=== PATIENT | male | born 1970 | race American Indian/Alaskan Native ===

== ENCOUNTER 2020-04-16 00:34 | Observation (INO) | payer OTHER ==
[2020-04-16] MEDS ORDERED: ASPIRIN 325 MG TAB PO ONE ×2 (01:34→05:02)
--- NOTE | 2020-04-16 02:13 | XRay Report ---
CHEST 1 VIEW 04/16/2020 1:04 AM INDICATION / CLINICAL INFORMATION: Chest Pain. COMPARISON: None available. FINDINGS: SUPPORT DEVICES: None. HEART / MEDIASTINUM: No significant abnormality. LUNGS / PLEURA: No significant pulmonary or pleural abnormality. No pneumothorax. ADDITIONAL FINDINGS: No significant additional findings. IMPRESSION: 1. No acute findings. Signer Name: Don Billings MD Signed: 04/16/2020 2:09 AM Workstation Name: [id number]
[2020-04-16 02:16] LABS: Basophils % (Auto) 0.3 % (0.0-1.8); Eosinophils % (Auto) 0.5 % (0.0-4.3); Hemoglobin 16.3 gm/dl (11.8-15.2); Lymphocytes # (Auto) 1.4 K/mm3 (1.2-5.4); Lymphocytes % (Auto) 19.1 % (13.4-35.0); Mean Corpuscular HGB Conc 35 % (32-34); Mean Corpuscular Volume 99 fl (84-94); Monocytes # (Auto) 0.6 K/mm3 (0.0-0.8); Monocytes % (Auto) 7.8 % (0.0-7.3); Platelet Count 268 K/mm3 (140-440); Red Blood Count 4.74 M/mm3 (3.65-5.03); Red Cell Distribution Width 13.3 % (13.2-15.2)
[2020-04-16 02:34] LABS: BUN/Creatinine Ratio 7; Blood Urea Nitrogen 8 mg/dL (9-20); Calcium 9.6 mg/dL (8.4-10.2); Hemolysis Index 5
[2020-04-16] MEDS ORDERED: ONDANSETRON 4 MG/2 ML INJ IV ONE (04:35)
[2020-04-16] MEDS ORDERED: diphenhydrAMINE 50 MG/ML VIAL IV ONE (04:35)
[2020-04-16] MEDS ORDERED: MORPHINE 4 MG/1 ML INJ IV ONE (04:35)
[2020-04-16] MEDS ORDERED: FAMOTIDINE 20 MG/2 ML INJ IV ONE (04:35)
[2020-04-16] MEDS ORDERED: METOCLOPRAMIDE 10 MG/2 ML INJ IV ONE (04:35)
--- NOTE | 2020-04-16 04:40 | Emergency Department Report ---
ED Chest Pain HPI - General Chief Complaint: Chest Pain Stated Complaint: ABD CHEST PAIN Time Seen by Provider: 04/16/20 04:34 Source: patient Mode of arrival: Stretcher Limitations: No Limitations - History of Present Illness Initial Comments: 50-year male with a past medical history of smoking, GERD, and hypertension presents to the hospital complaining of chest pain and abdominal pain since yesterday morning. Pain is fairly constant but fluctuates in intensity. Patient having nausea without vomiting. He states that pain is in the center of his chest, radiates to his left chest, then radiates to his epigastrium, left flank and back. Pain described as burning and sharp in nature. He endorses shortness of breath and pain is severe. Patient has been trying Tums without relief. He has been noncompliant with his Norvasc unclear known dose for the past month. He denies previous stress test. He denies family history of CAD. He smokes a pack per day. Patient denies daily alcohol intake and only drinks on occasion - Related Data Allergies Allergy/AdvReac Type Severity Reaction Status Date / Time No Known Allergies Allergy Verified 04/16/20 04:35 Heart Score - HEART Score History: Moderately suspicious EKG: Non-specific Age: 45-65 Risk factors: 1-2 risk factors Troponin: < normal limit HEART Score: 4 ED Review of Systems ROS: Stated complaint: ABD CHEST PAIN Other details as noted in HPI Comment: All other systems reviewed and negative ED Past Medical Hx - Past Medical History Previous Medical History?: Yes Hx Hypertension: Yes Hx GERD: Yes - Surgical History Past Surgical History?: No - Social History Smoking Status: Current Every Day Smoker Substance Use Type: Marijuana ED Physical Exam - General Limitations: No Limitations - Other Other exam information: Head: Atraumatic Eyes: normal appearance ENT: Moist mucous membranes Neck: Normal appearance, no midline tenderness Chest: Clear to auscultation bilaterally, chest wall nontender, clear to auscultation bilaterally CV: Regular rate and rhythm Abdomen: Soft, normal bowel sounds, mild epigastric tenderness, nontender, nondistended, no rebound or guarding Back: Normal inspection Extremity: Normal inspection, full range of motion Neuro: Alert O x 3, no facial asymmetry, speech clear, no gross motor sensory deficit Psych: Appropriate behavior Skin: No rash ED Course Vital Signs 04/16/20 04/16/20 04/16/20 01:25 04:01 04:15 Temperature 98.7 F Pulse Rate 59 L 67 59 L Respiratory 12 15 19 Rate Blood Pressure 194/112 190/93 190/93 O2 Sat by Pulse 100 98 97 Oximetry 04/16/20 04:58 Temperature Pulse Rate Respiratory 16 Rate Blood Pressure O2 Sat by Pulse Oximetry GIRISH score - Girish Score Age > 65: (0) No Aspirin use within the Past 7 Days: (0) No 3 or more CAD Risk Factors: (0) No 2 or more Angina events in past 24 hrs: (1) Yes Known CAD with more than 50% Stenosis: (0) No Elevated Cardiac Markers: (0) No ST Deviation Greater than 0.5mm: (0) No GIRISH Score: 1 ED Medical Decision Making - Lab Data Result diagrams: 04/16/20 01:37 04/16/20 01:37 Lab Results 04/16/20 04/16/20 04/16/20 Range/Units 01:37 01:37 04:26 WBC 7.1 (4.5-11.0) K/mm3 RBC 4.74 (3.65-5.03) M/mm3 Hgb 16.3 H (11.8-15.2) gm/dl Hct 47.0 H (35.5-45.6) % MCV 99 H (84-94) fl MCH 34 H (28-32) pg MCHC 35 H (32-34) % RDW 13.3 (13.2-15.2) % Plt Count 268 (140-440) K/mm3 Lymph % (Auto) 19.1 (13.4-35.0) % Mcdonald % (Auto) 7.8 H (0.0-7.3) % Eos % (Auto) 0.5 (0.0-4.3) % Baso % (Auto) 0.3 (0.0-1.8) % Lymph # (Auto) 1.4 (1.2-5.4) K/mm3 [place]cdonald # (Auto) 0.6 (0.0-0.8) K/mm3 Eos # (Auto) 0.0 (0.0-0.4) K/mm3 Baso # (Auto) 0.0 (0.0-0.1) K/mm3 Seg Neutrophils % 72.3 H (40.0-70.0) % Seg Neutrophils # 5.1 (1.8-7.7) K/mm3 Sodium 139 (137-145) mmol/L Potassium 3.7 (3.6-5.0) mmol/L Chloride 99.0 (98-107) mmol/L Carbon Dioxide 28 (22-30) mmol/L Anion Gap 16 mmol/L BUN 8 L (9-20) mg/dL Creatinine 1.1 (0.8-1.3) mg/dL Estimated GFR > 60 ml/min BUN/Creatinine Ratio 7 % Glucose 108 H (75-100) mg/dL Calcium 9.6 (8.4-10.2) mg/dL Troponin T < 0.010 < 0.010 (0.00-0.029) ng/mL - EKG Data -: EKG Interpreted by Me (christen) EKG shows normal: sinus rhythm, ST-T waves (no stemi) Rate: bradycardia (52) - Radiology Data Radiology results: report reviewed CHEST 1 VIEW 04/16/2020 1:04 AM INDICATION / CLINICAL INFORMATION: Chest Pain. COMPARISON: None available. FINDINGS: SUPPORT DEVICES: None. HEART / MEDIASTINUM: No significant abnormality. LUNGS / PLEURA: No significant pulmonary or pleural abnormality. No pneumothorax. ADDITIONAL FINDINGS: No significant additional findings. IMPRESSION: 1. No acute findings. Signer Name: Don Billings MD CTA CHEST, ABDOMEN, AND PELVIS WITHOUT AND WITH CONTRAST INDICATION / CLINICAL INFORMATION: Chest pain, epigastric pain, left leg pain, hypertension. TECHNIQUE: Axial CT images were obtained through the chest, abdomen, and pelvis after injection of 100 mL Omnipaque 350 IV contrast. 3 plane MIP and/or 3D reconstructions were produced. All CT scans at this location are performed using CT dose reduction for ALARA by means of automated exposure control. Any percent stenosis measurements are based on criteria similar to NASCET. COMPARISON: None available. FINDINGS: HEART: No significant abnormality. THORACIC AORTA: No significant abnormality. GREAT VESSELS: No significant abnormality. PULMONARY ARTERIES: No significant abnormality. No pulmonary emboli seen. ADDITIONAL CHEST FINDINGS: No significant abnormality. Lungs are clear. ABDOMINAL AORTA: Diffuse atherosclerotic plaque without significant stenosis or aneurysm. RENAL ARTERIES: No significant abnormality. CELIAC ARTERY: No significant abnormality. SUPERIOR MESENTERIC ARTERY: No significant abnormality. INFERIOR MESENTERIC ARTERY: No significant abnormality. RIGHT ILIAC ARTERIES: Diffuse plaque without flow-limiting stenosis or aneury sm.. LEFT ILIAC ARTERIES: Diffuse plaque without flow-limiting stenosis or aneurysm.. ADDITIONAL ABDOMINOPELVIC FINDINGS: No significant abnormality. SKELETAL STRUCTURES: No significant abnormality. IMPRESSION: 1. No acute findings in the chest, abdomen, or pelvis. - Medical Decision Making Patient presents to the hospital with chest pain as well as abdominal pain. Pain is likely GI in nature however, patient has several cardiac risk factors and has been noncompliant with medications and has never had a cardiac work-up. Patient feels like this pain is slightly different than his previous GERD episodes because not alleviated with Tums and dietary adjustment. He is not currently on a PPI or H2 daily EKG shows LVH. No signs of acute ischemia. Patient treated in the ED with aspirin, morphine, Zofran and his BP did improve to systolic of 160. Norvasc 5 mg ordered (10 mg dose canceled). Patient admitted to the hospital service for cardiac evaluation Critical Care Time: No Critical care attestation.: If time is entered above; I have spent that time in minutes in the direct care of this critically ill patient, excluding procedure time. ED Disposition Clinical Impression: Chest pain, Smoker, GERD (gastroesophageal reflux disease), Uncontrolled hypert ension, Noncompliance with medication regimen Disposition: OP ADMIT IP TO THIS HOSP Is pt being admited?: Yes Does the pt Need Aspirin: Yes Condition: Stable Time of Disposition: 05:46
[2020-04-16] MEDS ORDERED: ASPIRIN 325 MG TAB ONE (04:47)
--- NOTE | 2020-04-16 05:30 | Cat Scan Report ---
CTA CHEST, ABDOMEN, AND PELVIS WITHOUT AND WITH CONTRAST INDICATION / CLINICAL INFORMATION: Chest pain, epigastric pain, left leg pain, hypertension. TECHNIQUE: Axial CT images were obtained through the chest, abdomen, and pelvis after injection of 100 mL Omnipa que 350 IV contrast. 3 plane MIP and/or 3D reconstructions were produced. All CT scans at this locati on are performed using CT dose reduction for ALARA by means of automated exposure control. Any percen t stenosis measurements are based on criteria similar to NASCET. COMPARISON: None available. FINDINGS: HEART: No significant abnormality. THORACIC AORTA: No significant abnormality. GREAT VESSELS: No significant abnormality. PULMONARY ARTERIES: No significant abnormality. No pulmonary emboli seen. ADDITIONAL CHEST FINDINGS: No significant abnormality. Lungs are clear. ABDOMINAL AORTA: Diffuse atherosclerotic plaque without significant stenosis or aneurysm. RENAL ARTERIES: No significant abnormality. CELIAC ARTERY: No significant abnormality. SUPERIOR MESENTERIC ARTERY: No significant abnormality. INFERIOR MESENTERIC ARTERY: No significant abnormality. RIGHT ILIAC ARTERIES: Diffuse plaque without flow-limiting stenosis or aneurysm.. LEFT ILIAC ARTERIES: Diffuse plaque without flow-limiting stenosis or aneurysm.. ADDITIONAL ABDOMINOPELVIC FINDINGS: No significant abnormality. SKELETAL STRUCTURES: No significant abnormality. IMPRESSION: 1. No acute findings in the chest, abdomen, or pelvis. Signer Name: Don Billings MD Signed: 04/16/2020 5:26 AM Workstation Name: [id number]
[2020-04-16] MEDS ORDERED: amLODIPine 5 MG TAB PO ONE ×2 (05:38→05:44)
[2020-04-16] MEDS ORDERED: ONDANSETRON 4 MG/2 ML INJ IV PRN (06:03)
[2020-04-16] MEDS ORDERED: MAGNESIUM HYDROXIDE (MOM) ORAL LIQD UDC PO PRN (06:03)
[2020-04-16] MEDS ORDERED: NITROGLYCERIN 0.4 MG TAB SUBL SL PRN (06:03)
[2020-04-16] MEDS ORDERED: MORPHINE 4 MG/1 ML INJ IV PRN (06:03)
[2020-04-16] MEDS ORDERED: ACETAMINOPHEN 325 MG TAB PO PRN ×2 (06:03)
--- NOTE | 2020-04-16 06:16 | History and Physical Report ---
History of Present Illness Date of examination: 04/16/20 Date of admission: 04/16/2020 Chief complaint: Chest pain Abdominal pain History of present illness: 50-year-old -[place] male with known history of hypertension, GERD, history of tobacco and marijuana abuse presented to the emergency room today complaining of abdominal pain and chest pain which started about 24 hours ago. He states that he has been having upper abdominal pain which radiates to towards the back and upper and left side of his chest. He denies any nausea, no vomiting and no diarrhea. There is no no relieving or exacerbating factor. Patient indicates that he has been using ibuprofen for pain lately and he has also had bright red blood per rectum after having bowel movements. He denies any headache or dizziness. Patient has used some Tums without any significant relief. He also admits that he has not been quite compliant with his blood pressure medication Norvasc for about a month. He continues to smoke about a pack a day of cigarettes and also uses marijuana. He has not had any cardiac work-up in the past. Upon arrival in the emergency room patient's blood pressure was quite elevated. EKG did not show any ischemic changes, troponin levels so far has been normal. Patient is being admitted for evaluation of his chest pain/abdominal pain and possible rectal bleeding. Past History Past Medical History: GERD, hypertension Past Surgical History: No surgical history Social history: smoking (Current daily smoker), other (Uses Marijuana) Family history: no significant family history Medications and Allergies Allergies Allergy/AdvReac Type Severity Reaction Status Date / Time No Known Allergies Allergy Verified 04/16/20 04:35 Active Meds: Active Medications Acetaminophen (Tylenol) 650 mg PO Q4H PRN PRN Reason: Pain MILD(1-3)/Fever >100.5/CRUZ Ondansetron HCl (Zofran) 4 mg IV Q8H PRN PRN Reason: Nausea And Vomiting Sodium Chloride (Sodium Chloride Flush Syringe 10 Ml) 10 ml IV BID DEDRA Review of Systems Constitutional: no fever, no chills Cardiovascular: chest pain, no palpitations Respiratory: no cough, no shortness of breath Gastrointestinal: abdominal pain, hematochezia, no nausea, no vomiting Genitourinary Male: no dysuria, no hematuria, no nocturia Rectal: no bleeding Musculoskeletal: no neck pain, no low back pain Integumentary: no rash, no pruritis Neurological: no headaches, no confusion Exam - Constitutional Vitals: Temp Pulse Resp BP Pulse Ox 98.7 F 59 L 19 165/94 95 04/16/20 01:25 04/16/20 06:05 04/16/20 05:31 04/16/20 06:05 04/16/20 05:31 General appearance: Present: no acute distress, well-nourished - EENT Eyes: Present: PERRL, EOM intact. Absent: scleral icterus ENT: hearing intact, clear oral mucosa, dentition normal - Neck Neck: Present: supple, normal ROM - Respiratory Respiratory effort: normal Respiratory: bilateral: CTA - Cardiovascular Rhythm: regular Heart Sounds: Present: S1 & S2. Absent: gallop, systolic murmur, diastolic mu rmur - Extremities Extremities: no ischemia, pulses intact, pulses symmetrical, No edema, Full ROM Peripheral Pulses: within normal limits - Abdominal General gastrointestinal: Present: soft, tender (Epigastric tenderness), non- distended, normal bowel sounds Localized gastrointestinal: guarding: epigastric periumbilical - Integumentary Integumentary: Present: clear, warm, dry - Musculoskeletal Musculoskeletal: strength equal bilaterally - Psychiatric Psychiatric: appropriate mood/affect, intact judgment & insight, memory intact, cooperative - Neurologic Neurologic: CNII-XII intact, no focal deficits, moves all extremities HEART Score - HEART Score EKG: Non-specific Age: 45-65 Risk factors: 1-2 risk factors Troponin: Troponin T < 0.010 ng/mL (0.00-0.029) 04/16/20 04:26 Troponin: < normal limit Results - Labs CBC & Chem 7: 04/16/20 01:37 04/16/20 01:37 Labs: Abnormal lab results 04/16/20 04/16/20 Range/Units 01:37 01:37 Hgb 16.3 H (11.8-15.2) gm/dl Hct 47.0 H (35.5-45.6) % MCV 99 H (84-94) fl MCH 34 H (28-32) pg MCHC 35 H (32-34) % [place] % (Auto) 7.8 H (0.0-7.3) % Seg Neutrophils % 72.3 H (40.0-70.0) % BUN 8 L (9-20) mg/dL Glucose 108 H (75-100) mg/dL Assessment and Plan - Patient Problems (1) Chest pain Current Visit: Yes Status: Acute Plan to address problem: Patient admitted and placed on telemetry. Will check serial cardiac enzymes. Monitor EKG. We will place consult to cardiology for evaluation. Will also scheduled for stress test. (2) Abdominal pain Current Visit: Yes Status: Acute Plan to address problem: Etiology is unclear. Possibly related to this history of GERD versus peptic ulcer disease. Will also check stool for occult blood We will place patient on proton pump inhibitor. We will request gastroenterology evaluation. (3) Uncontrolled hypertension Current Visit: Yes Status: Acute Plan to address problem: Patient has not been quite compliant with his amlodipine for about a month Compliance with medication has been encouraged. We will resume routine home medications once reconciled. Meanwhile we will place on IV labetalol as needed for blood pressure control (4) DVT prophylaxis Current Visit: Yes Status: Acute Plan to address problem: We will place patient on sequential compression device. (5) Full code status Current Visit: Yes Status: Acute
--- NOTE | 2020-04-16 08:39 | Consultation ---
History of Present Illness Consult date: 04/16/20 Requesting physician: JADON CHANEY Consult reason: chest pain History of present illness: Pt is a 50 y.o. AA male with a hx of uncontrolled HTN and GERD who presented with complaints of acute onset abdominal pain radiating into his lower left chest x 2 days. Pt states pain is a constant gnawing feeling with intermittent episodes of severe sharp pain. Associated with diaphoresis and nausea. No emesis. Pt reports pain is worse after eating. He has not been able to tolerate food the past 2 days. He also reports some constipation, which has resolved since admission. Pt denies any additional cardiac complaints. No recent fever/chills. Trop neg x 2. ECG reveals no acute ischemic changes. No acute findings on CXR. CTA chest/abd/pelvis revealed no acute findings. Of note, BP significantly elevated at admission. No previous cardiac workup available for review. Past History Past Medical History: GERD, hypertension Past Surgical History: No surgical history Social history: smoking (current daily smoker), other (marijuana use) Medications and Allergies Allergies Allergy/AdvReac Type Severity Reaction Status Date / Time No Known Allergies Allergy Verified 04/16/20 04:35 Active Meds: Active Medications Acetaminophen (Tylenol) 650 mg PO Q4H PRN PRN Reason: Pain MILD(1-3)/Fever >100.5/CRUZ Aspirin (Ecotrin) 325 mg PO QDAY DEDRA Labetalol HCl (Labetalol) 20 mg IV Q4HR PRN PRN Reason: Hypertension Magnesium Hydroxide (Milk Of Magnesia) 30 ml PO Q4H PRN PRN Reason: Constipation Morphine Sulfate (Morphine) 2 mg IV Q5MIN PRN PRN Reason: Chest Pain Nitroglycerin (Nitrostat) 0.4 mg SL Q5M PRN PRN Reason: Chest Pain Ondansetron HCl (Zofran) 4 mg IV Q8H PRN PRN Reason: Nausea And Vomiting Pantoprazole Sodium (Protonix) 40 mg IV BID DEDRA Sodium Chloride (Sodium Chloride Flush Syringe 10 Ml) 10 ml IV BID DEDRA Sodium Chloride (Sodium Chloride Flush Syringe 10 Ml) 10 ml IV PRN PRN PRN Reason: LINE FLUSH Review of Systems Constitutional: sweats, no fever, no chills Ears, nose, mouth and throat: no nasal congestion, no sore throat Cardiovascular: chest pain, palpitations, no orthopnea, no edema, no syncope, no lightheadedness, no shortness of breath, no dyspnea on exertion, no paroxysmal nocturnal dyspnea, no claudication Respiratory: no cough, no shortness of breath, no dyspnea on exertion Gastrointestinal: abdominal pain, nausea, constipation, no vomiting, no diarrhea Genitourinary Male: no dysuria, no flank pain Musculoskeletal: no neck stiffness, no neck pain, no myalgias Integumentary: no rash, no wounds Neurological: no head injury, no paralysis, no weakness, no parathesias, no numbness, no tingling, no seizures, no syncope, no vertigo, no headaches Endocrine: no cold intolerance, no heat intolerance, no polydipsia, no polyuria Hematologic/Lymphatic: no easy bruising, no easy bleeding Allergic/Immunologic: no urticaria Physical Examination Last Vital Signs Temp 98.7 F 04/16/20 01:25 Pulse 55 L 04/16/20 06:45 Resp 16 04/16/20 06:45 BP 148/90 04/16/20 06:45 Pulse Ox 100 04/16/20 06:45 General appearance: no acute distress HEENT: Positive: EOMI, Normocephaly, Mucus Membranes Moist Neck: Positive: neck supple, trachea midline. Negative: JVD/HJR Cardiac: Positive: Reg Rate and Rhythm, S1/S2 Lungs: Positive: clear to auscultation Neuro: Positive: Grossly Intact Abdomen: Positive: Soft, Active Bowel Sounds, Tender Skin: Positive: Clear Musculoskeletal: No Pain, Normal Range of Motion Extremities: Present: upper extr. pulses, lower extr. pulses. Absent: edema Results 04/16/20 01:37 04/16/20 01:37 CBC 04/16/20 Range/Units 01:37 WBC 7.1 (4.5-11.0) K/mm3 RBC 4.74 (3.65-5.03) M/mm3 Hgb 16.3 H (11.8-15.2) gm/dl Hct 47.0 H (35.5-45.6) % Plt Count 268 (140-440) K/mm3 Lymph # (Auto) 1.4 (1.2-5.4) K/mm3 [place] # (Auto) 0.6 (0.0-0.8) K/mm3 Eos # (Auto) 0.0 (0.0-0.4) K/mm3 Baso # (Auto) 0.0 (0.0-0.1) K/mm3 Comprehensive Metabolic Panel 04/16/20 Range/Units 01:37 Sodium 139 (137-145) mmol/L Potassium 3.7 (3.6-5.0) mmol/L Chloride 99.0 (98-107) mmol/L Carbon Dioxide 28 (22-30) mmol/L BUN 8 L (9-20) mg/dL Creatinine 1.1 (0.8-1.3) mg/dL Glucose 108 H (75-100) mg/dL Calcium 9.6 (8.4-10.2) mg/dL - Imaging and Cardiology Echo: pending EKG: report reviewed, image reviewed - EKG Interpretation EKG: no acute changes EKG interpretations - EKG Sinus rhythms and dysrhythmias: sinus rhythm Repolarization changes or abnormalities: nonspecific abnormality, ST segment, and/or T wave Assessment and Plan Echo pending. Plan for Lexiscan MPI stress test in AM. NPO after midnight. Optimize antihypertensive regimen. Continue PPI. Pt seen in conjunction with Dr. Winston, who agrees with the assessment and plan of care. - Patient Problems (1) Chest pain Current Visit: Yes Status: Acute (2) Hypertensive urgency Current Visit: Yes Status: Acute (3) Epigastric pain Current Visit: Yes Status: Acute (4) GERD (gastroesophageal reflux disease) Current Visit: Yes Status: Chronic (5) Tobacco use Current Visit: Yes Status: Chronic (6) Medical non-compliance Current Visit: Yes Status: Chronic
[2020-04-16 09:33] LABS: Chol/HDL Ratio 3.29 %
[2020-04-16] MEDS: PANTOPRAZOLE 40 MG INJ IV SCH ×2 (10:17→22:48)
[2020-04-16] MEDS ORDERED: LOSARTAN 25 MG TAB PO SCH (11:00)
--- NOTE | 2020-04-16 11:09 | Event Note ---
Date: 04/16/20 Sign out received from Dr Cota. Patient is a 50 year old M admitted with chest and epigastric pain associated with blood in stool. No shortness of breath. Pain radiates to the back. +ve nausea but no vomiting so he has not been able to tolerate PO for about 2 days. Cardiology and Gi consulted for chest pain and blood in stool Patient seen and examined this AM. He is eager to have breakfast. Cardiology recommends stress test on 04/17. Awaiting GI eval. If no procedure planned today, he can have a meal. Discussed with CARLOS
[2020-04-16] MEDS: hydroCHLOROthiazide 25 MG TAB PO SCH (15:16)
[2020-04-16] MEDS: carvediloL 12.5 MG TAB PO SCH ×2 (15:18→22:48)
--- NOTE | 2020-04-16 17:38 | Consultation ---
History of Present Illness - Reason for Consult Consult date: 04/16/20 Chest pain Requesting physician: AFTAB HIRSCH - History of Present Illness 50 yo BM admitted with 2 day hx of knotting epigastric pain radiating up chest and then off to L side where it became burning in nature in his back. Had nausea but no vomiting. Did not eat with this so unsure if this worsens it. Had similar episode ~ 6 months ago, and was given omeprazole, which does not seem to help. He denies frequent heartburn or regurgitation. No dysphagia, weight loss, GI bleed. BMs regular, qd. He smokes 1 ppd, and marijuana - 1 or 2/d. No significant EtOH. Meds reviewed. Past History Past Medical History: GERD, hypertension Past Surgical History: No surgical history Social history: smoking (current daily smoker, 1 ppd tobacco, and 1-2 joints marijuana/d), other (marijuana use) Family history: no significant family history Medications and Allergies Allergies Allergy/AdvReac Type Severity Reaction Status Date / Time No Known Allergies Allergy Verified 04/16/20 04:35 Home Medications Medication Instructions Recorded Confirmed Last Taken Type Omeprazole 20 mg PO DAILY 04/16/20 04/16/20 Unknown History Active Meds: Active Medications Acetaminophen (Tylenol) 650 mg PO Q4H PRN PRN Reason: Pain MILD(1-3)/Fever >100.5/CRUZ Aspirin (Ecotrin) 325 mg PO QDAY [facility] Carvedilol (Coreg) 12.5 mg PO BID [facility] Last Admin: 04/16/20 15:18 Dose: Not Given Documented by: Hydrochlorothiazide (Hctz) 25 mg PO QDAY [facility] Last Admin: 04/16/20 15:16 Dose: 25 mg Documented by: Losartan Potassium (Cozaar) 25 mg PO QDAY [facility] Last Admin: 04/16/20 15:17 Dose: 25 mg Documented by: Magnesium Hydroxide (Milk Of Magnesia) 30 ml PO Q4H PRN PRN Reason: Constipation Morphine Sulfate (Morphine) 2 mg IV Q5MIN PRN PRN Reason: Chest Pain Last Admin: 04/16/20 10:17 Dose: 2 mg Documented by: Nitroglycerin (Nitrostat) 0.4 mg SL Q5M PRN PRN Reason: Chest Pain Ondansetron HCl (Zofran) 4 mg IV Q8H PRN PRN Reason: Nausea And Vomiting Pantoprazole Sodium (Protonix) 40 mg IV BID [facility] Last Admin: 04/16/20 10:17 Dose: 40 mg Documented by: Sodium Chloride (Sodium Chloride Flush Syringe 10 Ml) 10 ml IV BID [facility] Last Admin: 04/16/20 10:18 Dose: 10 ml Documented by: Sodium Chloride (Sodium Chloride Flush Syringe 10 Ml) 10 ml IV PRN PRN PRN Reason: LINE FLUSH Review of Systems All systems: negative (as noted) Exam - Constitutional Vitals: Temp Pulse Resp BP Pulse Ox 97.8 F 51 L 16 145/83 96 04/16/20 15:14 04/16/20 15:18 04/16/20 15:21 04/16/20 15:21 04/16/20 15:14 General appearance: Present: no acute distress - EENT Eyes: Present: PERRL, EOM intact ENT: hearing intact - Neck Neck: Present: supple - Respiratory Respiratory effort: normal Respiratory: bilateral: CTA - Cardiovascular Rhythm: regular Heart Sounds: Present: S1 & S2 - Extremities Extremities: No edema - Abdominal General gastrointestinal: Present: soft, non-tender Results - Labs CBC & Chem 7: 04/16/20 01:37 04/16/20 01:37 Labs: Abnormal lab results 04/16/20 04/16/20 Range/Units 01:37 01:37 Hgb 16.3 H (11.8-15.2) gm/dl Hct 47.0 H (35.5-45.6) % MCV 99 H (84-94) fl MCH 34 H (28-32) pg MCHC 35 H (32-34) % Stephens % (Auto) 7.8 H (0.0-7.3) % Seg Neutrophils % 72.3 H (40.0-70.0) % BUN 8 L (9-20) mg/dL Glucose 108 H (75-100) mg/dL - Imaging and Cardiology CT scan - abdomen: report reviewed CT scan - chest: report reviewed CT scan - pelvis: report reviewed (Normal CT) Assessment and Plan 1. Epigastric knotting pain - unclear etiology. CT negative. Atypical biliary colic vs vascular, vs functional. - being evaluated for possible cardiac ischemia - if cardiac evaluation negative, will do EGD - meantime, will get GB ultrasound, and check LFTs
[2020-04-17 01:54] LABS: Alanine Aminotransferase 9 units/L (7-56); Albumin 3.5 g/dL (3.9-5)
[2020-04-17 02:17] LABS: Bilirubin,Direct < 0.2 mg/dL (0-0.2)
[2020-04-17 05:53] LABS: BUN/Creatinine Ratio 13; Blood Urea Nitrogen 14 mg/dL (9-20); Calcium 8.8 mg/dL (8.4-10.2); Hemolysis Index 5
[2020-04-17 05:54] LABS: Basophils % (Auto) 0.2 % (0.0-1.8); Eosinophils # (Auto) 0.1 K/mm3 (0.0-0.4); Eosinophils % (Auto) 1.8 % (0.0-4.3); Hematocrit 43.1 % (35.5-45.6); Hemoglobin 14.4 gm/dl (11.8-15.2); Lymphocytes # (Auto) 2.3 K/mm3 (1.2-5.4); Lymphocytes % (Auto) 37.2 % (13.4-35.0); Mean Corpuscular HGB Conc 34 % (32-34); Mean Corpuscular Volume 99 fl (84-94); Monocytes # (Auto) 0.5 K/mm3 (0.0-0.8); Monocytes % (Auto) 7.7 % (0.0-7.3); Platelet Count 233 K/mm3 (140-440); Red Blood Count 4.33 M/mm3 (3.65-5.03)
[2020-04-17 06:02] LABS: INR 0.91 (0.87-1.13)
[2020-04-17] MEDS ORDERED: POTASSIUM CHLORIDE ER 20 MEQ TAB PO NR (07:40)
[2020-04-17] MEDS ORDERED: REGADENOSON 0.4 MG/5 ML INJ IV ONE ×2 (08:21→09:52)
--- NOTE | 2020-04-17 09:53 | Progress Note ---
Assessment and Plan D/c coreg in setting of sinus bradycardia (HR low 38bpm overnight) and increase losartan dosage. tte reviewed - EF 55-60%, mild to mod LVH, LA mildly dilated, RA mild to mod dilated. Chest pain currently resolved. AMI r/o. S/p lexiscan MPI stress test today which was negative. GI recs noted - if cardiac evaluation negative, pt for EGD. Continue PPI. Currently stable cardiac status. Pt is at low cardiovascular risk for endoscopy. There are no immediate cardiac contraindications to proceeding with endoscopy. Nothing further to add from cardiac perspective at this time. Will sign off. Recommend pt follow up in our office with Dr. Winston within 2 weeks of discharge ([phone]). Pt seen in conjunction with Dr. Rojo who agrees with the assessment and plan of care. - Patient Problems (1) Chest pain Current Visit: Yes Status: Resolved (2) Hypertensive urgency Current Visit: Yes Status: Resolved (3) Epigastric pain Current Visit: Yes Status: Acute (4) GERD (gastroesophageal reflux disease) Current Visit: Yes Status: Chronic (5) GERD (gastroesophageal reflux disease) Current Visit: Yes Status: Chronic (6) Tobacco use Current Visit: Yes Status: Chronic (7) Medical non-compliance Current Visit: Yes Status: Chronic Subjective Date of service: 04/17/20 Principal diagnosis: cp; abd pain Interval history: pt resting in bed, no current complaints. for stress test today. in SB on tele HR 50s, HR low 38bpm overnight. Objective Last Vital Signs Temp 98.4 F 04/17/20 07:40 Pulse 50 L 04/17/20 07:40 Resp 20 04/17/20 07:40 BP 137/77 04/17/20 07:40 Pulse Ox 100 04/17/20 07:40 - Physical Examination General: No Apparent Distress HEENT: Positive: EOMI, Normocephaly, Mucus Membranes Moist Neck: Positive: neck supple, trachea midline. Negative: JVD/HJR Cardiac: Positive: Regular Rhythm, S1/S2 Lungs: Positive: Decreased Breath Sounds Neuro: Positive: Grossly Intact Abdomen: Positive: Soft, Active Bowel Sounds, Tender Skin: Positive: Clear Musculoskeletal: No Pain, Normal Range of Motion Extremities: Present: upper extr. pulses, lower extr. pulses. Absent: edema - Labs and Meds Cardiac Enzymes 04/17/20 Range/Units 00:34 AST 18 (5-40) units/L Coagulation 04/17/20 Range/Units 04:45 PT 12.4 (12.2-14.9) Sec. INR 0.91 (0.87-1.13) CBC 04/17/20 Range/Units 04:45 WBC 6.1 (4.5-11.0) K/mm3 RBC 4.33 (3.65-5.03) M/mm3 Hgb 14.4 (11.8-15.2) gm/dl Hct 43.1 (35.5-45.6) % Plt Count 233 (140-440) K/mm3 Lymph # (Auto) 2.3 (1.2-5.4) K/mm3 Garrett # (Auto) 0.5 (0.0-0.8) K/mm3 Eos # (Auto) 0.1 (0.0-0.4) K/mm3 Baso # (Auto) 0.0 (0.0-0.1) K/mm3 Comprehensive Metabolic Panel 04/17/20 04/17/20 Range/Units 00:34 04:45 Sodium 134 L (137-145) mmol/L Potassium 3.3 L (3.6-5.0) mmol/L Chloride 95.9 L (98-107) mmol/L Carbon Dioxide 27 (22-30) mmol/L BUN 14 (9-20) mg/dL Creatinine 1.1 (0.8-1.3) mg/dL Glucose 82 (75-100) mg/dL Calcium 8.8 (8.4-10.2) mg/dL Direct Bilirubin < 0.2 (0-0.2) mg/dL Indirect Bilirubin 0.1 mg/dL AST 18 (5-40) units/L ALT 9 (7-56) units/L Alkaline Phosphatase 74 (35-129) units/L Total Protein 7.2 (6.3-8.2) g/dL Albumin 3.5 L (3.9-5) g/dL - Imaging and Cardiology EKG: report reviewed, image reviewed - Telemetry EKG Rhythm: Sinus Bradycardia - EKG Sinus rhythms and dysrhythmias: sinus rhythm Repolarization changes or abnormalities: nonspecific abnormality, ST segment, and/or T wave
[2020-04-17] MEDS ORDERED: ASPIRIN EC 325 MG TAB PO SCH (10:00)
[2020-04-17] MEDS ORDERED: LOSARTAN 25 MG TAB PO SCH (10:30)
--- NOTE | 2020-04-17 10:43 | Ultrasound Report ---
ULTRASOUND ABDOMEN, LIMITED (RIGHT UPPER QUADRANT) INDICATION / CLINICAL INFORMATION: Epigastric pain. COMPARISON: None available. FINDINGS: PANCREAS: Visualized portion shows no significant abnormality. LIVER: No significant abnormality. GALLBLADDER: No significant abnormality. BILE DUCTS: No significant abnormality. Common bile duct measures 2 mm. FREE FLUID: None. ADDITIONAL FINDINGS: None. IMPRESSION: 1. No significant sonographic abnormality of the right upper quadrant. Signer Name: Kobe Peña MD Signed: 04/17/2020 10:38 AM Workstation Name: [id number]
[2020-04-17] MEDS: carvediloL 12.5 MG TAB PO SCH (11:00)
[2020-04-17] MEDS: PANTOPRAZOLE 40 MG INJ IV SCH (11:01)
[2020-04-17] MEDS: hydroCHLOROthiazide 25 MG TAB PO SCH (11:01)
[2020-04-17 12:08] VITALS: BP 140/77
--- NOTE | 2020-04-17 12:25 | Discharge Summary ---
Providers - Providers Date of Admission: 04/16/20 05:48 Date of discharge: 04/17/20 Attending physician: KWADWO FROST 04/16/20 Consult to Cardiac Rehabilitation [CONS] Routine Reason For Exam: Phase I 04/16/20 06:04 Consult to Cardiology [CONS] Routine Consulting Provider: ROSE TANG Reason For Exam: chest pain 04/16/20 06:09 Consult to Physician [CONS] Routine Comment: Consulting Provider: PAIGE MAXWELL Physician Instructions: Reason For Exam: ABDOMINAL PAIN, H/O GERD, BLOODY STOOL Primary care physician: [employer] Hospitalization Hospital course: HPI 50-year-old -[place] male with known history of hypertension, GERD, history of tobacco and marijuana abuse presented to the emergency room today complaining of abdominal pain and chest pain which started about 24 hours ago. He states that he has been having upper abdominal pain which radiates to towards the back and upper and left side of his chest. He denies any nausea, no vomiting and no diarrhea. There is no no relieving or exacerbating factor. Patient indicates that he has been using ibuprofen for pain lately and he has also had bright red blood per rectum after having bowel movements. He denies any headache or dizziness.Patient has used some Tums without any significant relief. He also admits that he has not been quite compliant with his blood pressure medication Norvasc for about a month. He continues to smoke about a pack a day of cigarettes and also uses marijuana. He has not had any cardiac work-up in the past. Upon arrival in the emergency room patient's blood pressure was quite elevated. EKG did not show any ischemic changes, troponin levels so far has been normal. Patient is being admitted for evaluation of his chest pain/abdominal pain and possible rectal bleeding. Hospital course Cardiology was consulted and a stress test was recommended. Test was performed on 04/17 and it was negative. GI recommends endoscopy which patient refused. He remains without symptoms and will be discharged to follow up with cardiology and GI. Patient agrees with treatment. He has been told to avoid NSAIDS for now. I have started him on PPI. Disposition: - TO HOME OR SELFCARE - Discharge Diagnoses (1) Dyspepsia Status: Acute (2) Abdominal pain Status: Acute (3) Chest pain Status: Acute Core Measure Documentation - Palliative Care Palliative Care/ Comfort Measures: Not Applicable - Core Measures Any of the following diagnoses?: none Exam - Constitutional Vitals: Temp Pulse Resp BP Pulse Ox 98.7 F 53 L 20 140/77 100 04/17/20 11:39 04/17/20 11:39 04/17/20 11:39 04/17/20 11:39 04/17/20 11:39 General appearance: Present: no acute distress, well-nourished - EENT Eyes: Present: PERRL ENT: hearing intact, clear oral mucosa - Neck Neck: Present: supple, normal ROM - Respiratory Respiratory effort: normal Respiratory: bilateral: CTA - Cardiovascular Heart Sounds: Present: S1 & S2. Absent: rub, click - Extremities Extremities: pulses symmetrical, No edema Peripheral Pulses: within normal limits - Abdominal General gastrointestinal: Present: soft, non-tender, non-distended, normal bowel sounds Male genitourinary: Present: normal - Integumentary Integumentary: Present: clear, warm, dry - Musculoskeletal Musculoskeletal: gait normal, strength equal bilaterally - Psychiatric Psychiatric: appropriate mood/affect, intact judgment & insight - Neurologic Neurologic: CNII-XII intact, moves all extremities Plan Activity: no restrictions Diet: low fat, low salt Additional Instructions: Follow up in with Dr. Reyna within 2 weeks of discharge ([phone]). Continue medications as ordered. Follow up with Gastroenterology in the office Follow up with: JAYDEN SANFORD MD [Primary Care Provider] - 3-5 Days ARSENIO REYNA MD [Staff Physician] - 7 Days PAIGE MAXWELL MD [Staff Physician] - 7 Days Prescriptions: carvediloL [Coreg] 12.5 mg PO BID #60 tablet Losartan [Cozaar] 50 mg PO QDAY #60 tablet hydroCHLOROthiazide [HCTZ] 25 mg PO QDAY #20 tablet Omeprazole 20 mg PO DAILY #30
--- NOTE | 2020-04-17 12:32 | Treadmill Report ---
CARDIAC NUCLEAR PROFUSION STUDY REASON FOR STUDY: Chest pain. IMAGING PROTOCOL: The patient received 10 mCi of Technetium 99m Tetrofosmin for resting image and 28 mCi of Technetium 99m Tetrofosmin for stress imaging. The imaging for the whole procedure was completed 30-90 minutes following the initial injection of Technetium 99m Tetrofosmin. The SPECT imaging in the 180 degree arc was performed in the right anterior oblique projection. Computerized reconstruction of the images was performed for analysis. IMAGING RESULTS: Normal cavity size from stress to rest. Normal distribution of radionuclide in the anterior, inferior, septal, and apical regions. Gated SPECT, EF 51% with no wall motion abnormalities. The patient infused Lexiscan with no EKG changes. SUMMARY: 1. Negative Lexiscan EKG. 2. Normal rest and stress myocardial perfusion scan. No significant ischemia. No wall motion abnormality. Gated SPECT, EF 51%. JOB# [id number] MARIAH/SUMIT
[2020-04-17] MEDS ORDERED: POTASSIUM CHLORIDE 10 MEQ 10 MEQ/100 ML BAG IV SCH (13:00)
[2020-04-17] MEDS ORDERED: POTASSIUM CHLORIDE ER 20 MEQ TAB PO SCH (14:00)
== END 2020-04-17 13:20 | disposition home or self-care (01) ==
LOC: ED 00:34 → 4A 05:48
PROVIDERS: ADMIT Internal Medicine Geriatric Medicine; ATTEND Internal Medicine
DX: I10 Essential (primary) hypertension (principal); I16.0 Hypertensive urgency; K21.9 Gastro-esophageal reflux disease without esophagitis; R07.89 Other chest pain; R10.13 Epigastric pain; F17.210 Nicotine dependence, cigarettes, uncomplicated; Z91.14 Patient's other noncompliance with medication regimen; Z79.82 Long term (current) use of aspirin
CPT/HCPCS: 36415; 71045; 71275; 74174; 76705; 78452; 80048; 80061; 80076; 83690; 84484; 85025; 85610; 93005; 93017; 93306; 96374; 96375; 96376; 99285; A9502; C9113; G0378; J1200; J2270; J2405; J2765; J2785; Q9967